=== PATIENT | male | born 1990 | race Caucasian/White ===

== ENCOUNTER 2018-08-14 14:09 | Emergency (ER) | payer MEDICAID, MEDICARE ==
[2018-08-14] MEDS ORDERED: RINGERS SOLUTION,LACTATED 1,000 ML IV ONE (15:04)
[2018-08-14] MEDS ORDERED: IBUPROFEN 800 MG TABLET PO ONE (15:04)
[2018-08-14] MEDS ORDERED: ONDANSETRON HCL INJ/PF 4 MG/2 ML SDV IV ONE (15:04)
--- NOTE | 2018-08-14 15:09 | ER Document Report ---
ED Medical Screen (RME) - General Chief Complaint: Nausea Stated Complaint: NAUSEA, FEVER Time Seen by Provider: 08/14/18 14:59 Notes: Patient is a 27-year-old male presents to the emergency department for generalized nausea, subjective fevers, tooth pain. Patient states he has been unable to brush his teeth for the last month due to increased pain in all of his teeth. States he has noticed that when he brushes he experiences a lot of ble eding. Patient states he is also gotten very nauseated and has had multiple episodes of subjective fevers. Patient's heart rate was noted to be 126 upon triage. GENERAL: Alert, interacts well. No acute distress. LUNGS: Clear to auscultation bilaterally, no wheezes, rales, or rhonchi. No respiratory distress. HEART: Tachycardic rate and rhythm. No murmur ABDOMEN: Morbidly obese soft, non-tender. Non-distended. Bowel sounds present in all 4 quadrants. I have greeted and performed a rapid initial assessment of this patient. A comprehensive ED assessment and evaluation of the patient, analysis of test results and completion of the medical decision making process will be conducted by additional ED providers. This medical record was dictated with voice recognizing software. There may be grammatical, syntax errors that are unintended. TRAVEL OUTSIDE OF THE [place] IN LAST 30 DAYS: No - Related Data Allergies/Adverse Reactions: bee pollen [Bee Pollen] Allergy (Verified 08/14/18 14:48) cefdinir [From Omnicef] Allergy (Verified 08/14/18 14:48) Sulfa (Sulfonamide Antibiotics) Allergy (Verified 08/14/18 14:48) Past Medical History - Social History Frequency of alcohol use: Rare Drug Abuse: None Neurological Medical History: Reports: Hx Migraine Renal/ Medical History: Denies: Hx Peritoneal Dialysis Musculoskeltal Medical History: Reports Hx Musculoskeletal Trauma Traumatic Medical History: Reports: Hx Fractures Past Surgical History: Reports: Hx Cholecystectomy, Hx Myringotomy, Hx Orthope dic Surgery - Left Wrist Rebuilt, Hx Tonsillectomy - Immunizations Immunizations up to date: Yes Hx Diphtheria, Pertussis, Tetanus Vaccination: Yes Physical Exam - Vital signs Vitals: Temp Pulse Resp BP Pulse Ox 98.7 F 127 H 18 141/88 H 93 08/14/18 14:13 08/14/18 14:13 08/14/18 14:13 08/14/18 14:13 08/14/18 14:13 Course - Vital Signs Vital signs: Temp Pulse Resp BP Pulse Ox 98.7 F 127 H 18 141/88 H 93 08/14/18 14:13 08/14/18 14:13 08/14/18 14:13 08/14/18 14:13 08/14/18 14:13
[2018-08-14] MEDS ORDERED: IBUPROFEN 800 MG TABLET ONE (17:18)
[2018-08-14] MEDS ORDERED: ONDANSETRON HCL INJ/PF 4 MG/2 ML SDV ONE (17:18)
[2018-08-14 17:55] LABS: ALANINE AMINOTRANSFERASE 98 U/L (21-72); ALBUMIN 3.6 g/dL (3.5-5.0); ALKALINE PHOSPHATASE 106 U/L (38-126); ANION GAP 9 (5-19); ASPARTATE AMINO TRANSFERASE 71 U/L (17-59); BILIRUBIN,DIRECT 0.5 mg/dL (0.0-0.4); BILIRUBIN,TOTAL 1.1 mg/dL (0.2-1.3); BLOOD UREA NITROGEN 11 mg/dL (7-20); CALCIUM 8.5 mg/dL (8.4-10.2); CARBON DIOXIDE 21 mmol/L (22-30); CHLORIDE 102 mmol/L (98-107); GLUCOSE 145 mg/dL (75-110); POTASSIUM 4.1 mmol/L (3.6-5.0); SODIUM 131.6 mmol/L (137-145); TOTAL PROTEIN 7.4 g/dL (6.3-8.2)
[2018-08-14 18:36] LABS: ABSOLUTE BASOPHILS # (AUTO) 0.1 10^3/uL (0.0-0.2); ABSOLUTE LYMPHOCYTES (AUTO) 4.3 10^3/uL (0.5-4.7); ABSOLUTE MONOCYTES (AUTO) 0.8 10^3/uL (0.1-1.4); ABSOLUTE NEUT (AUTO) 3.7 10^3/uL (1.7-8.2); BASOPHILS % (AUTO) 1.2 % (0-2); EOSINOPHILS % (AUTO) 0.2 % (0-6); HEMATOCRIT 38.2 % (37.9-51.0); HEMOGLOBIN 13.6 g/dL (13.5-17.0); LYMPHOCYTES % (AUTO) 48.1 % (13-45); MEAN CORPUSCULAR HEMOGLOBIN 31.3 pg (27.0-33.4); MEAN CORPUSCULAR HGB CONC 35.5 g/dL (32.0-36.0); MEAN CORPUSCULAR VOLUME 88 fl (80-97); MONOCYTES % (AUTO) 8.7 % (3-13); PLATELET COUNT 241 10^3/uL (150-450); RED BLOOD COUNT 4.33 10^6/uL (4.35-5.55); RED CELL DISTRIBUTION WIDTH 14.4 % (11.5-14.0); SEGMENTED NEUTROPHILS % (AUTO) 41.8 % (42-78); TOTAL CELLS COUNTED % (AUTO) 100 %; WHITE BLOOD COUNT 8.9 10^3/uL (4.0-10.5)
--- NOTE | 2018-08-14 18:37 | ER Document Report ---
ED General - General Chief Complaint: Nausea Stated Complaint: NAUSEA, FEVER Time Seen by Provider: 08/14/18 14:59 Notes: 27-year-old male presents to the emergency department for generalized nausea, subjective fevers mostly at night, tooth pain over the last 1 week. Patient states he has been unable to brush his teeth for the last month due to increased pain in all of his teeth. States he has noticed that when he brushes he experiences a lot of bleeding. Patient states he is also gotten very nauseated and has had multiple episodes of subjective fevers. He denies any headaches, earaches, sore throat, difficulty swallowing, shortness of breath or chest pain, abdominal pain, vomiting, diarrhea, urinary symptoms. He does not have primary or dental insurance. TRAVEL OUTSIDE OF THE [place] IN LAST 30 DAYS: No - Related Data Allergies/Adverse Reactions: bee pollen [Bee Pollen] Allergy (Verified 08/14/18 14:48) cefdinir [From Omnicef] Allergy (Verified 08/14/18 14:48) Sulfa (Sulfonamide Antibiotics) Allergy (Verified 08/14/18 14:48) Past Medical History - Social History Smoking Status: Never Smoker Frequency of alcohol use: Rare Drug Abuse: None Family History: CAD, Hyperlipidemia Patient has suicidal ideation: No Patient has homicidal ideation: No Neurological Medical History: Reports: Hx Migraine Renal/ Medical History: Denies: Hx Peritoneal Dialysis Musculoskeletal Medical History: Reports Hx Musculoskeletal Trauma Traumatic Medical History: Reports: Hx Fractures Past Surgical History: Reports: Hx Cholecystectomy, Hx Myringotomy, Hx Orthopedic Surgery - Left Wrist Rebuilt, Hx Tonsillectomy - Immunizations Immunizations up to date: Yes Hx Diphtheria, Pertussis, Tetanus Vaccination: Yes Review of Systems - Review of Systems Constitutional: See HPI EENT: No symptoms reported Cardiovascular: See HPI Respiratory: See HPI Gastrointestinal: See HPI Genitourinary: No symptoms reported Male Genitourinary: No symptoms reported Musculoskeletal: No symptoms reported Skin: No symptoms reported Hematologic/Lymphatic: No symptoms reported Neurological/Psychological: No symptoms reported Physical Exam - Vital signs Vitals: Temp Pulse Resp BP Pulse Ox 98.7 F 127 H 18 141/88 H 93 08/14/18 14:13 08/14/18 14:13 08/14/18 14:13 08/14/18 14:13 08/14/18 14:13 - Notes Notes: PHYSICAL EXAMINATION: Reviewed vital signs and charting by RN GENERAL: Alert, interacts well. No acute distress. HEAD: Normocephalic, atraumatic. Very poor dentition. Gingivitis throughout all of his gums, loose and rotten teeth, some mild bleeding from the #14 tooth at the gumline. EYES: Pupils equal and round. Extraocular movements intact. ENT: Oral mucosa moist, tongue midline. NECK: Full range of motion. Supple. Trachea midline. LUNGS: Clear to auscultation bilaterally, no wheezes, rales, or rhonchi. No respiratory distress. HEART: Regular rate and rhythm. No murmur EXTREMITIES: Moves all 4 extremities spontaneously. No edema, No cyanosis. NEUROLOGIC: Oriented and appropriate. Normal speech. PSYCH: Normal affect, normal mood. SKIN: Warm, dry, normal turgor. No rashes or lesions noted. Course - Re-evaluation Re-evalutation: 08/14/18 19:59 Overall well-appearing. Very poor dentition with evidence of generalized gingivitis and infection in his mouth. He received clindamycin 600 mg 1 time here in the emergency department I have written him a prescription for clindamycin 600 mg every 6 hours for 7 days. Patient came in tachycardic 126 bpm. Patient received 2 L of normal saline and patient is now 100 to 101 bpm. Patient showed me his apple watch and his baseline heart rate has been in the low 100s for the past several days. I suspect patient is mildly dehydrated. Lab work all unremarkable, no leukocytosis, mild hyponatremia. Patient states overall he feels well and the Zofran did help him with his nausea. It is unclear why he has been nauseated as it is unrelated to eating and he has a history of a cholecystectomy. He does not think it is related to his poor dentition. But the Zofran did help. I have given him information for the [facility] dental clinic and for the [facility]. Information for the coming community clinic and also in his discharge paperwork. Overall patient has improved clinically and is safe and stable for discharge. - Vital Signs Vital signs: Temp Pulse Resp BP Pulse Ox 98.7 F 127 H 18 141/88 H 96 08/14/18 14:13 08/14/18 14:13 08/14/18 14:13 08/14/18 14:13 08/14/18 18:08 - Laboratory Result Diagrams: 08/14/18 18:28 08/14/18 17:15 Laboratory results interpreted by me: 08/14/18 08/14/18 17:15 18:28 RBC 4.33 L RDW 14.4 H Seg Neutrophils % 41.8 L Lymphocytes % 48.1 H Sodium 131.6 L Carbon Dioxide 21 L Glucose 145 H Direct Bilirubin 0.5 H AST 71 H ALT 98 H Discharge - Discharge Clinical Impression: Poor dentition, Gingivitis, Nausea Condition: Good Disposition: HOME, SELF-CARE Additional Instructions: You have been seen for dental pain and dental infection. You also have gingivitis. All of your lab work was reassuring and you do not have any signs of infection in your blood. It is very important that you follow-up with a dentist for definitive care. Also, we gave you some IV fluids to rehydrate you. This could explain why your heart rate was fast along with anxiety. Please return if you develop fever greater than 101, swelling in your face, vomiting, difficulty breathing or swallowing, or any other symptoms that are concerning to you. For pain you should take ibuprofen 600 mg every 6 hours as needed. I have also given you information for the [facility] and the [facility]. Please follow-up with them. Prescriptions: Clindamycin HCl 300 mg PO Q6H 7 Days #28 capsule
[2018-08-14] MEDS ORDERED: NORMAL SALINE 1000 ML 1,000 ML IV ONE (18:52)
[2018-08-14] MEDS ORDERED: CLINDAMYCIN HCL 150 MG CAPSULE PO ONE (19:20)
[2018-08-14 20:28] VITALS: BP 139/79
== END 2018-08-14 20:33 | disposition home or self-care (01) ==
LOC: ER 14:09
DX: R11.0 Nausea (principal); K05.10 Chronic gingivitis, plaque induced; B99.9 Unspecified infectious disease; K08.89 Other specified disorders of teeth and supporting structures; E87.6 Hypokalemia; R00.0 Tachycardia, unspecified; Z91.030 Bee allergy status; Z88.1 Allergy status to other antibiotic agents; Z88.2 Allergy status to sulfonamides; Z90.49 Acquired absence of other specified parts of digestive tract
CPT/HCPCS: 99283; 96361; 96374; 36415; 85025; 80053; J2405; J7030; J7120

== ENCOUNTER 2019-10-01 14:12 | Emergency (ER) | payer MEDICAID, MEDICARE ==
[2019-10-01] MEDS ORDERED: ONDANSETRON HCL INJ/PF 4 MG/2 ML SDV IV ONE (15:00)
[2019-10-01] MEDS ORDERED: NORMAL SALINE 1000 ML 1,000 ML IV ONE (15:00)
--- NOTE | 2019-10-01 15:07 | ER Document Report ---
ED GI/ - General Chief Complaint: Nausea/Vomiting Stated Complaint: NAUSEA/VOMITING Time Seen by Provider: 10/01/19 14:51 Notes: CHIEF COMPLAINT: Nausea vomiting diarrhea HPI: 29-year-old male presenting for nausea vomiting diarrhea over the last 2 days. Denies abdominal pain other than some soreness from all the vomiting. States he has thrown up at least 10 or 12 times in the last 24 hours. Also 2-3 episodes of diarrhea nonbloody. No fever. Patient does work at [employer]. Patient states that he had an episode of diarrhea for 24 hours approximately 10 to 12 days ago and was put on work restriction but did not have a COVID test. ROS: See HPI - all other systems were reviewed and are otherwise negative Constitutional: no fever Eyes: no drainage, no blurred vision ENT: no runny nose, no sore throat Cardiovascular: no chest pain Resp: no SOB, no cough GI: + vomiting, + diarrhea, no abdominal pain : no dysuria Integumentary: no rash Allergy: no hives Musculoskeletal: no extremity pain or swelling Neurological: no numbness/tingling, no weakness MEDICATIONS: I agree with the patient medications as charted by the RN. ALLERGIES: I agree with the allergies as charted by the RN. PAST MEDICAL HISTORY/PAST SURGICAL HISTORY: Reviewed and agree as charted by RN. SOCIAL HISTORY: Reviewed and agree as charted by RN. FAMILY HISTORY: No significant familial comorbid conditions directly related to patient complaint EXAM: Reviewed vital signs as charted by RN. CONSTITUTIONAL: Alert and oriented and responds appropriately to questions. Well-appearing; well-nourished HEAD: Normocephalic; atraumatic EYES: PERRL; Conjunctivae clear, sclerae non-icteric ENT: normal nose; no rhinorrhea; moist mucous membranes; pharynx without lesions noted, no uvula edema or deviation, no tonsillar hypertrophy, phonation normal NECK: Supple without meningismus; non-tender; no cervical lymphadenopathy, no masses CARD: RRR; no murmurs, no clicks, no rubs, no gallops; symmetric distal pulses RESP: Normal chest excursion without splinting or tachypnea; breath sounds clear and equal bilaterally; no wheezes, no rhonchi, no rales, pulse oximetry 97% on room air not hypoxic ABD/GI: Obese, normal bowel sounds; non-distended; soft, non-tender, no rebound, no guarding; no palpable organomegaly or masses. BACK: The back appears normal and is non-tender to palpation, there is no CVA tenderness EXT: Normal ROM in all joints; non-tender to palpation; no cyanosis, no effusions, no edema SKIN: Normal color for age and race; warm; dry; good turgor; no acute lesions noted NEURO: Moves all extremities equally; Motor and sensory function intact PSYCH: The patient's mood and manner are appropriate. Grooming and personal hygiene are appropriate. MDM: 29-year-old male presenting for nausea vomiting diarrhea over the last 2 days. No reproducible or focal abdominal pain on exam at this time. Prior history of cholecystectomy. Will obtain screening labs, hydrate patient treat nausea reassess. 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 IN LAST 30 DAYS: No - Related Data Allergies/Adverse Reactions: bee pollen [Bee Pollen] Allergy (Verified 10/01/19 14:58) cefdinir [From Omnicef] Allergy (Verified 10/01/19 14:58) Sulfa (Sulfonamide Antibiotics) Allergy (Verified 10/01/19 14:58) Past Medical History - Social History Smoking Status: Unknown if Ever Smoked Family History: CAD, Hyperlipidemia Neurological Medical History: Reports: Hx Migraine Renal/ Medical History: Denies: Hx Peritoneal Dialysis Musculoskeletal Medical History: Reports Hx Musculoskeletal Trauma Traumatic Medical History: Reports: Hx Fractures Past Surgical History: Reports: Hx Cholecystectomy, Hx Myringotomy, Hx Orthopedic Surgery - Left Wrist Rebuilt, Hx Tonsillectomy - Immunizations Immunizations up to date: Yes Hx Diphtheria, Pertussis, Tetanus Vaccination: Yes Physical Exam - Vital signs Vitals: Temp Pulse Resp BP Pulse Ox 98.7 F 86 16 149/85 H 97 10/01/19 14:15 10/01/19 14:15 10/01/19 14:15 10/01/19 14:15 10/01/19 14:15 Course - Re-evaluation Re-evalutation: 10/01/19 16:14 Patient is tolerating p.o. fluids. States nausea is improved. No abdominal pain on repeat exam. Awaiting urinalysis but anticipate discharge home likely a viral etiology patient will be considered a person under investigation and will self quarantine for 14 days or until test results are negative 10/01/19 17:00 Urine is negative for infection. Will discharge home - Vital Signs Vital signs: Temp Pulse Resp BP Pulse Ox 98.7 F 86 16 149/85 H 97 10/01/19 14:20 10/01/19 14:15 10/01/19 14:15 10/01/19 14:15 10/01/19 14:15 - Laboratory Result Diagrams: 10/01/19 14:32 10/01/19 14:32 Laboratory results interpreted by me: 10/01/19 14:32 Sodium 135.8 L Glucose 142 H Discharge - Discharge Clinical Impression: Nausea vomiting and diarrhea, Person under investigation for COVID-19 Condition: Stable Disposition: HOME, SELF-CARE Additional Instructions: Take Zofran for any recurrent nausea or vomiting issues. Push fluids at home. You are considered a person under investigation at this point, self quarantine at home for the next 14 days or until you have a negative test result. Follow- up with your primary care provider for reevaluation of symptoms but return to the emergency department for any concerns or recurrent vomiting or onset of abdominal pain Prescriptions: Ondansetron [Zofran Odt 4 mg Tablet] 1 - 2 tab PO Q4H PRN #15 tab.rapdis PRN Reason: For Nausea/Vomiting
[2019-10-01 15:08] LABS: ABSOLUTE EOSINOPHILS # (AUTO) 0.1 10^3/uL (0.0-0.6); ABSOLUTE LYMPHOCYTES (AUTO) 3.1 10^3/uL (0.5-4.7); ABSOLUTE MONOCYTES (AUTO) 0.5 10^3/uL (0.1-1.4); ABSOLUTE NEUT (AUTO) 3.8 10^3/uL (1.7-8.2); BASOPHILS % (AUTO) 0.5 % (0-2); EOSINOPHILS % (AUTO) 0.8 % (0-6); HEMATOCRIT 45.9 % (37.9-51.0); HEMOGLOBIN 15.8 g/dL (13.5-17.0); LYMPHOCYTES % (AUTO) 40.6 % (13-45); MEAN CORPUSCULAR HGB CONC 34.6 g/dL (32.0-36.0); MEAN CORPUSCULAR VOLUME 93 fl (80-97); MONOCYTES % (AUTO) 7.1 % (3-13); PLATELET COUNT 284 10^3/uL (150-450); RED BLOOD COUNT 4.95 10^6/uL (4.35-5.55); TOTAL CELLS COUNTED % (AUTO) 100 %; WHITE BLOOD COUNT 7.5 10^3/uL (4.0-10.5)
[2019-10-01 15:15] LABS: ALBUMIN 4.4 g/dL (3.5-5.0); ALKALINE PHOSPHATASE 85 U/L (38-126); ANION GAP 9 (5-19); ASPARTATE AMINO TRANSFERASE 30 U/L (17-59); BILIRUBIN,DIRECT 0.1 mg/dL (0.0-0.4); BILIRUBIN,TOTAL 0.8 mg/dL (0.2-1.3); BLOOD UREA NITROGEN 9 mg/dL (7-20); CALCIUM 9.3 mg/dL (8.4-10.2); CARBON DIOXIDE 25 mmol/L (22-30); CHLORIDE 102 mmol/L (98-107); GLUCOSE 142 mg/dL (75-110); POTASSIUM 3.8 mmol/L (3.6-5.0); TOTAL PROTEIN 7.6 g/dL (6.3-8.2)
[2019-10-01] MEDS ORDERED: ACETAMINOPHEN 325 MG TABLET PO ONE (15:24)
[2019-10-01 16:51] LABS: APPEARANCE,URINE SLIGHTLY-CLOUDY; BILIRUBIN,URINE NEGATIVE (NEGATIVE); COLOR,URINE YELLOW; GLUCOSE, URINE NEGATIVE (NEGATIVE); KETONES,URINE NEGATIVE (NEGATIVE); LEUKOCYTE ESTERASE,URINE NEGATIVE (NEGATIVE); NITRITE,URINE NEGATIVE (NEGATIVE); PROTEIN,URINE NEGATIVE (NEGATIVE); URINE SPECIFIC GRAVITY 1.016; UROBILINOGEN,URINE NEGATIVE mg/dL (<2.0)
[2019-10-01 17:24] VITALS: BP 140/86
== END 2019-10-01 17:24 | disposition home or self-care (01) ==
LOC: ER 14:12
DX: R11.2 Nausea with vomiting, unspecified (principal); R19.7 Diarrhea, unspecified; Z20.828 Contact with and (suspected) exposure to other viral communicable diseases; Z90.49 Acquired absence of other specified parts of digestive tract; Z91.030 Bee allergy status; Z88.1 Allergy status to other antibiotic agents; Z88.2 Allergy status to sulfonamides
CPT/HCPCS: 99283; 96361; 96374; 36415; 83690; 85025; 87635; 80053; 81001; J2405; J7030; C9803